=== PATIENT | female | born 1970 | race African-American/Black ===

== ENCOUNTER 2018-05-14 07:24 | Day surgery (SDC) | payer BC, OTHER ==
[2018-05-12 09:22] VITALS: BMI 29.9
[2018-05-14] MEDS ORDERED: BUPIVACAINE HCL/PF (5 MG/ML) 30 ML VIAL IJ ONE (11:00)
[2018-05-14] MEDS ORDERED: MIDAZOLAM HCL 2 MG/2 ML SINGLE DOSE VIAL ONE (11:00)
[2018-05-14] MEDS ORDERED: DEXAMETHASONE SOD PHOSPHATE/PF 10 MG/ML SDV ONE (11:00)
[2018-05-14] MEDS ORDERED: BENZOIN/ALOE VERA/STORAX/TOLU 58 ML BOTTLE ONE (11:26)
[2018-05-14] MEDS ORDERED: ONDANSETRON 4 MG/2 ML VIAL ONE (11:40)
[2018-05-14] MEDS ORDERED: DEXAMETHASONE SOD PHOSPHATE 4 MG/1 ML VIAL ONE (11:40)
[2018-05-14] MEDS ORDERED: ceFAZolin SODIUM 1 GM VIAL ONE (11:40)
--- NOTE | 2018-05-14 13:32 | PN ---
Progress Note (short form) - Note Progress Note: 60M s/p RIGHT shoulder open Ector procedure, Neer Decompression, & rotator cuff repair POD #0. -Pain control: Meloxicam & oxycodone PRN. -Incentive spirometry. -No chemical DVT PPx. -RUE sling. -No RIGHT shoulder ROM. -Daily RIGHT elbow, wrist & hand ROM. -Keep dressing clean & dry. -f/u in [facility] [place] [facility] on 05/21/2018; call for appointment; . Ran Mei MD (Orthopaedic Surgery).
--- NOTE | 2018-05-14 13:34 | OP ---
Operative Note - Note: Operative Date: 05/14/18 Pre-Operative Diagnosis: Right shoulder: 1. Impingement syndrome. 2. Rotator cuff tear Operation: Right shoulder open: 1. Ector procedure (distal clavicle excision) . 2. Neer decompression (undercutting acromioplasty & coraco-acromial ligament release). 3. Primary rotator cuff repair Findings: Partial thickness articular-sided tear Post-Operative Diagnosis: Same as Pre-op Surgeon: Ran Mei Onboarding Specialist: Choco Mei Anesthesiologist/DELIVERY ASSISTANT: Nazia Carmona Anesthesia: Local (Interscalene block) Specimens Removed: Right AC joint excision arthroplasty Estimated Blood Loss (mls): 25 Fluid Volume Replaced (mls): 1,000 (Crystalloid) Operative Report Dictated: Yes
[2018-05-14 13:35] VITALS: TEMP 98
[2018-05-14] MEDS ORDERED: ONDANSETRON 4 MG/2 ML VIAL IVPUSH PRN (14:13)
[2018-05-14] MEDS ORDERED: oxyCODONE HCL 5 MG TABLET PO PRN ×2 (14:13)
[2018-05-14] MEDS ORDERED: LACTATED RINGERS SOLUTION 1,000 ML IV SCH (14:15)
[2018-05-14 15:12] VITALS: BP 108/52; PULSE 67
--- NOTE | 2018-05-14 16:15 | OP ---
Date of Operation: 05/14/2018 Surgeon: Ran Mei MD Quality Technician: Choco Mei MD Pre-Operative Diagnosis: Right shoulder: 1. Impingement syndrome. 2. Rotator cuff tear. Post-Operative Diagnosis: Right shoulder: 1. Impingement syndrome. 2. Rotator cuff tear. Surgical Procedure: Right shoulder open: 1. Ector procedure (distal clavicle excision). 2. Neer decompression (undercutting acromioplasty and coraco-acromial ligament release). 3. Primary rotator cuff repair. Findings: 1. Full-thickness rotator cuff tear. Anesthesia: Sedation, Regional (interscalene block). Position: Beach chair. Incision: Longitudinal. Estimated Blood Loss: 25cc. Intravenous Fluid: See anaesthesia record. Specimens: Excision arthroplasty AC joint. Drains: None. Complications: None. Urine output: None. Bacteriology: None. Transfusions: None. Closure: #1 Vicryl. 3-0 Biosyn. Indications: The patient is a 47 year old female who was indicated for an open right shoulder distal claviculectomy (Ector procedure), coraco-acromial ligament release & Acromioplasty (Neer Decompression), and rotator cuff repair in order to ameliorate the symptoms associated with shoulder impingement syndrome and associated rotator cuff pathology. The patient was identified in the holding area by her armband. A long discussion was held with the patient (in the presence of her family) regarding the risks, benefits and alternatives of the above-named procedure. Risks include but are not limited to: pain, bleeding, infection, damage to surrounding structures (including nerves, blood vessels, skin, ligaments, tendons and bone), reflex sympathetic dystrophy (RSD), wound complications, failure of repair, need for further surgery, blood clots, myocardial infarction , pulmonary embolism, anesthesia complications, compartment syndrome, limb loss , limp, loss of function, cerebrovascular event, and . Benefits as mentioned above. Alternatives include no surgery. All questions were answered. The patient and her family understood and agreed to the procedure. Informed consent was obtained, witnessed and verified. The patients correct operative limb - the right upper extremity - was marked, and the anesthesia team administered an ipsilateral interscalene nerve block. The patient was then taken to the operating room after being seen by the anesthesia and nursing staff. Procedure: The patient was brought into the operating room, placed supine on the OR table and secured with a safety strap. Consent and the operative site was again verified with the patient and nursing and anaesthesia staff. Anaesthesia & antibiotics were then administered without complication. A time-out was done led by , the attending surgeon. The patient was positioned in a beach chair position with all bony prominences well padded. The operative limb was prepped in standard sterile fashion using betadine prep & scrub, wiped off with alcohol, and DuraPrep, and then free draped. A time-out was repeated, and the case began. An incision was made in the lines of Simón from the coracoid process to the lateral body of the acromion. The deltoid was identified. Subcutaneous dissection was carried with electrocautery down to the level of the distal clavicle. With the distal clavicle exposed, sharp Hohmann retractors were placed around the inferior aspects of the anterior and posterior surfaces of the distal clavicle to elevate it. The acromioclavicular (AC) joint was clearly identified and the AC ligament was incised using a 15-blade. The distal 1cm of the clavicle was marked for excision. An oscillating saw was used to perform a distal clavicular osteotomy. A beveled angular cut was made to avoid leaving a sharp inferior corner to impinge on the rotator cuff below. The excision arthroplasty of the distal clavicle was completed and excised from its capsular attachments using a 15-blade. The soft tissues of the joint were saved for later closure. Throughout the case, hemostasis was assured using either monopolar or bipolar electrocautery. Next, the deltoid was elevated anteriorly using an [place] retractor, revealing the coraco-acromial (CA) ligament below. The CA ligament was incised longitudinally using a fresh 15-blade. The CA ligament was then fully released proximally and distally using Metzenbaum scissors. With the CA ligament fully decompressed, the subacromial space became easily accessible. This space was extremely tight. The AC joint capsule was neatly dissected to expose the distal acromion. A blunt Hohmann retractor was placed on the undersurface of the acromion, levering the humeral head down, protecting the underlying structures. Next, the oscillating saw was used to osteotomize the undersurface of the acromion with a beveled cut. A straight 1/2" osteotome was used to complete the cut and to free the excised segment of bone. The osteotomized acromioplasty bone fragment was then removed using a rongeur with a 15-blade to release any soft tissue attachments. The wound was copiously irrigated throughout the case using normal saline solution. Next, with finger palpation, an entire finger was delivered into the sub- acromial space and bursal adhesions were released using manual finger debridement. The shoulder was then taken through a full range of motion were a full thickness tear of the supraspinatus tendon was visualized with hematoma bridging the tear. A single #1 vicryl suture was used in simple interrupted fashion to bridge and repair the rotator cuff derangement. At this point the wound was copiously irrigated. The AC joint capsule was closed primarily using #1 vicryl sutures. Again, copious irrigation was performed, hemostasis was assured and the wound was closed primarily using #1 vicryl sutures. The skin was closed using a 3-0 Biosyn subcuticular suture. A sterile, compressive dressing was applied. The sponge and needle counts were correct at the end of the case and I, the attending surgeon, was present and scrubbed throughout the case. The patient was then transferred to a hospital stretcher and to the recovery room in stable condition, having tolerated the procedure well. A sling was applied at the end of the case. MD PRAVEEN Trinidad/[id number] MTDD
[2018-05-15] MEDS ORDERED: HCG SCJ SCH (10:00)
--- NOTE | 2018-05-20 12:04 | PATH ---
Surgical Pathology Report Patient Name: MABEL AYERS Med. Rec. #: [id number] /Age/Gender: 1970 (Age: 47) / F Account: [id number] Location: [facility] Taken: 05/14/2018 Received: 05/14/2018 Reported: 05/20/2018 Physicians: Ran Mei M.D. Specimen(s) Received EXCISION ARTHROPLASTY AC JOINT RIGHT SHOULDER Clinical History Right shoulder rotator cuff tear Final Diagnosis AC JOINT, RIGHT SHOULDER, EXCISION ARTHROPLASTY: CARTILAGE-CAPPED BONE, FIBROCOLLAGENOUS TISSUE AND SKELETAL MUSCLE. Electronically Signed Kely Jackson M.D. Gross Description Received in formalin labeled "excision arthroplasty AC joint right shoulder," is a 2.3 x 1.8 x 1.3 cm portion of bone. Also received within the same container is a 2.5 x 2.0 x 1.3 cm aggregate of soft tissue fragments. E [employer] Strategist sections are submitted in one cassette, following decalcification. 05/17/2018 saudi05/17/2018
== END 2018-05-14 14:25 | disposition home or self-care (01) ==
LOC: FASU 07:24
PROVIDERS: ATTEND Orthopaedic Surgery Adult Reconstructive Orthopaedic Surgery
PROC: 0LQ10ZZ Repair Right Shoulder Tendon, Open Approach (ICD-10-PCS; 2018-05-14)
PROC: 0PB90ZZ Excision of Right Clavicle, Open Approach (ICD-10-PCS; principal; 2018-05-14 09:30)
PROC: 0MN10ZZ Release Right Shoulder Bursa and Ligament, Open Approach (ICD-10-PCS; 2018-05-14 09:30)
DX: M75.121 Complete rotator cuff tear or rupture of right shoulder, not specified as traumatic (principal); M75.41 Impingement syndrome of right shoulder
CPT/HCPCS: 88304-TC; 88311-TC

== ENCOUNTER 2019-05-13 12:32 | Day surgery (SDC) | payer OTHER ==
[2019-05-05 18:55] VITALS: BMI 26.6
[2019-05-13] MEDS ORDERED: MIDAZOLAM HCL 2 MG/2 ML SINGLE DOSE VIAL ONE ×2 (14:29→16:03)
[2019-05-13] MEDS ORDERED: ROPIVACAINE HCL 0.5% 30ML VIAL ONE (14:29)
[2019-05-13] MEDS ORDERED: PROPOFOL 20 ML ONE ×3 (16:04)
[2019-05-13] MEDS ORDERED: ceFAZolin SODIUM 1 GM VIAL ONE ×2 (16:15)
[2019-05-13] MEDS ORDERED: DEXAMETHASONE SOD PHOSPHATE 4 MG/1 ML VIAL ONE (17:01)
[2019-05-13] MEDS ORDERED: ONDANSETRON 4 MG/2 ML VIAL ONE ×2 (17:01→17:34)
[2019-05-13] MEDS ORDERED: TRANEXAMIC ACID 1000 MG/10 ML VIAL ONE (17:06)
[2019-05-13] MEDS ORDERED: EPHEDRINE SULFATE/0.9% NACL/PF 50 MG/10 ML SYRINGE NR ONE (17:16)
--- NOTE | 2019-05-13 17:33 | PN ---
Progress Note (short form) - Note Progress Note: 48F s/p RIGHT shoulder revision open Neer Decompression (CA ligament release and acromioplasty) POD #0. -Pain control: Duexis, Vicodin. -Incentive spirometry. -No chemical DVT PPx. -RUE sling. -Begin RIGHT shoulder pendulum swings when pain controlled. -Daily RIGHT elbow, wrist & hand ROM. -Keep dressing clean & dry. -f/u in [facility] [place] Office within 7-10 days; call for appointment; . Chooc Mei MD (Orthopaedic Surgery).
[2019-05-13] MEDS ORDERED: ALBUTEROL SO4 8 GM HFA INHALER IH PRN (17:34)
--- NOTE | 2019-05-13 17:35 | OP ---
Operative Note - Note: Operative Date: 05/13/19 ( ) Pre-Operative Diagnosis: Right shoulder pain of unknown origin Operation: Right shoulder open: 1. Revision excision arthroplasty AJ joint. 2. Revision Neer decompression (CA ligament release and acromioplasty). 3. Subacromial decompression Post-Operative Diagnosis: Same as Pre-op Surgeon: Choco Mei Regional Medical Director: Ran Mei Anesthesiologist/AVIONICS ELECTRONICS TECHNICIAN: Kurtis Marquez Anesthesia: Local Estimated Blood Loss (mls): 15 Fluid Volume Replaced (mls): 900 (Crystalloid) Operative Report Dictated: Yes
[2019-05-13] MEDS ORDERED: PROMETHAZINE HCL 25 MG/1 ML VIAL IVPUSH PRN (17:37)
[2019-05-13] MEDS ORDERED: oxyCODONE HCL 5 MG TABLET PO PRN ×2 (17:37)
[2019-05-13] MEDS ORDERED: ONDANSETRON 4 MG/2 ML VIAL IVPUSH PRN (17:37)
[2019-05-13 18:49] VITALS: TEMP 98
[2019-05-13 19:28] VITALS: BP 110/52; PULSE 58
--- NOTE | 2019-05-13 23:37 | OP ---
DATE OF OPERATION: 05/13/2019 SURGEON: Choco Mei M.D. REGIONAL COORDINATOR: Ran Mei M.D. ANESTHESIA: General with scalene block. PREOPERATIVE DIAGNOSIS: Unclear cause of persistent shoulder pain finding a previous near decompression and rotator cuff repair. PREOPERATIVE DIAGNOSIS: Subacromial impingement. OPERATION: Right shoulder open: 1. Revision excision arthroplasty AJ joint. (07274) 2. Revision Neer decompression (CA ligament release and acromioplasty). ( [id number]) 3. Subacromial decompression. OPERATION DETAILS: The patient was correctly identified, brought in operating room. Right upper extremity was prepped, draped in the routine manner with Betadine scrub solution, wiped off with alcohol, DuraPrep applied. Timeout was called. Treva mellisa was available for intraoperative evaluation. INDICATION: This patient underwent a successful rotator cuff repair in the past , has experienced excellent return of range of motion of the shoulder, but persistent pain, which appears to be non-mechanical in nature occurred resulting in a need to reexplore the shoulder, as all repeat imaging failed to provide a convincing diagnosis as to what is causing this. A fall in the past certainly did not help her clinical problem in any way. The incision is made through the original scar. The skin and soft tissue subcutaneous bed was from the deltoid muscle both cranially and caudally to the scar. The excision arthroplasty site was identified, and using a Bovie, the entire excision arthroplasty found massive tissue between the clavicle and the acromion was resected. At that point, gentle traction was applied to the arm and with digital palpation the undersurface of the acromion was palpated and found to have a small beak of bone anteriorly which appeared to be impinging into the actual healed rotator cuff. The naturally repaired CA ligament transection was noted, and a strong band across the front part of the shoulder noted. This on flexion of the shoulder and extension of the shoulder appeared to impinge up against the CA band as well as the small beak of bone, which was residual on the acromioplasty. With digital palpation, one could get the sense that there was impingement against both the band as well as this segment of bone on the acromion. The CA ligament of the first 2 cm once again transected, and this enabled easy opening of the subacromial space, and the entire rotator cuff was carefully inspected and found to have no tear. The beak of bone on the acromion was then attended to by dissecting the soft tissue off the bone using a small oscillating saw with the humeral head held out of harm's way with a blunt Hohmann with a tip under the acromion to lever downhill and the right retractor holding the soft tissue that was dissected off the actual bone of the acromion, and to keep that out of harm's way. With that a new beveled cut of the anterior aspect of the acromion was performed. With digital palpation, we felt that the articulation was completely smooth with regard to the subacromial space. Tissues were thoroughly lavaged. A hemostasis was achieved with unipolar Bovie. Closure subcutaneous, 1 and 2-0 Vicryl. Deep tissues were closed with the rotator cuff having been repaired with the impingement now out of harm's way now enabled a watertight closure of the deltoid as well as towards the back, but leaving a space in the AC joint for revision formation of scar tissue and revision excision arthroplasty. Subcutaneous tissue with 2-0 Vicryl, skin 3-0 Monocryl with Steri-Strips. Hemostasis was achieved on the table, and TXA was given postoperatively. MD PRAVEEN Suárez/[id number] MTDRaf
[2019-05-14] MEDS ORDERED: valACYclovir HCL 500 MG TABLET (FP) PO SCH (10:00)
[2019-05-14] MEDS ORDERED: ESTROGENS,CONJUGATED 0.3 MG TABLET PO SCH (10:00)
--- NOTE | 2019-05-20 11:38 | OP ---
DATE OF OPERATION: 05/13/2019 PREOPERATIVE DIAGNOSIS: Right shoulder pain of unknown origin. OPERATION: 1. Right shoulder (revision) excision arthroplasty, acromioclavicular joint. 2. Revision Neer decompression. 3. Subacromial decompression. POSTOPERATIVE DIAGNOSIS: Right shoulder pain of unknown origin. SURGEON: Choco Mei MD ASSISTANT CORPORATE SECRETARY: Ran Mei MD ANESTHESIOLOGIST: Kurtis Marquez MD ANESTHESIA: Local. ESTIMATED BLOOD LOSS: 15. FLUID VOLUME REPLACEMENT: 900. Ran Mei MD DS/[id number]
== END 2019-05-13 19:35 | disposition home or self-care (01) ==
LOC: FASU 12:32
PROVIDERS: ATTEND Orthopaedic Surgery Adult Reconstructive Orthopaedic Surgery
PROC: 0RNJ0ZZ Release Right Shoulder Joint, Open Approach (ICD-10-PCS; 2019-05-13)
PROC: 0RNJ0ZZ Release Right Shoulder Joint, Open Approach (ICD-10-PCS; 2019-05-13)
PROC: 0RRJ0J7 Replacement of Right Shoulder Joint with Synthetic Substitute, Glenoid Surface, Open Approach (ICD-10-PCS; principal; 2019-05-13 16:44)
DX: M75.41 Impingement syndrome of right shoulder (principal)
CPT/HCPCS: 94760